=== PATIENT | female | born 1960 | race Caucasian/White ===

== ENCOUNTER 2018-02-04 12:02 | Inpatient (IN) | payer MEDICARE, OTHER ==
[~2018-02-04 12:02] MED LIST: Dexamethasone 20 MG/5 ML VIAL ONE; Lidocaine 1% PF 5 ML VIAL ONE; Ondansetron PF 4 MG/2 ML Vial ONE; PHENYLEPHRINE-NS 100 MCG/ML 10 ML SYRINGE ONE; PROPOFOL 200 MG/20 ML VIAL ONE
[2018-02-04] MEDS ORDERED: Fentanyl 100 MCG/2 ML VIAL ONE ×4 (12:35→17:07)
[2018-02-04] MEDS ORDERED: Ondansetron PF 4 MG/2 ML Vial ONE (12:35)
[2018-02-04 13:09] LABS: Bilirubin Negative (Negative); Blood, Urine Negative (Negative); Clarity CLEAR (Clear); Glucose, Urine (Dipstick) Negative (Negative); Leukocyte Negative (Negative); Nitrite Positive (Negative); Protein, Urine (Dipstick) Negative (Neg-Trace); Specific Gravity, Urine 1.016 (1.002-1.036); Urobilinogen 0.2 mg/dL (0.2-1.0); pH, Urine 6.5 (5.0-9.0)
[2018-02-04 13:10] LABS: #Basophils 0.1 thou/uL (0.0-0.2); #Eosinphils 0.1 thou/uL (0.0-0.7); #Lymphocytes 1.5 thou/uL (1.20-3.40); #Monocytes 0.5 thou/uL (0.11-0.59); #Neutrophils 4.2 thou/uL (1.40-6.50); %Eosinophils 1.1 % (0.0-10.0); %Lymphocytes 23.7 % (21.0-51.0); %Monocytes 7.4 % (0.0-10.0); %Neutrophils 66.9 % (42.0-75.0); Hemoglobin 9.9 g/dL (12.0-16.0); Mean Corpuscular Hemoglobin 22.4 pg (27.0-31.0); Mean Corpuscular Volume 74.6 fL (78.0-98.0); Mean Platelet Volume 7.3 fL (7.4-10.4); Platelet Count 368 thou/uL (130-400); RBC Distribution Width 16.4 % (11.5-14.5); Red Blood Cell (RBC) Count 4.43 mill/uL (4.20-5.40); White Blood Cell (WBC) Count 6.2 thou/uL (4.8-10.8)
[2018-02-04 13:12] LABS: Bacteria/HPF Rare-Few HPF (None Seen); Hyaline Casts/LPF 0-3 HYALINE CAST LPF (0-3 Hyaline); RBC/HPF 0-3 HPF (0-3); Squamous Epithelial None Seen HPF (0-3); WBC/HPF None Seen HPF (0-3)
[2018-02-04 13:15] LABS: Hypochromia SLIGHT = 6-15 cells (100X) (0-5/hpf); MDiff Complete? YES; Microcytosis SLIGHT = 6-15 cells (100X) (0-5/hpf); PLT Morphology Comment Appears Adequate; Polychromasia SLIGHT = 2-3 cells (100X) (0-2/hpf)
[2018-02-04 13:16] LABS: ALT (SGPT) 33 U/L (8-55); AST (SGOT) 32 U/L (5-34); Albumin 3.8 g/dL (3.5-5.0); Alkaline Phosphatase 108 U/L (40-150); Anion Gap 13 mmol/L (10-20); BUN (Urea Nitrogen) 17 mg/dL (9.8-20.1); Bilirubin, Total 0.4 mg/dL (0.2-1.2); CK (CPK) 338 U/L (29-168); Calc. Creatinine Clearance 0 mL/min (70-130); Carbon Dioxide 21 mmol/L (22-29); Chloride 105 mmol/L (98-107); Estimated GFR-MDRD 87; Globulin 3.1 g/dL (2.4-3.5); Glucose 113 mg/dL (70-105); Potassium 3.9 mmol/L (3.5-5.1); Protein, Total 6.9 g/dL (6.0-8.3); Sodium 135 mmol/L (136-145)
--- NOTE | 2018-02-04 13:30 | RAD ---
CHEST ONE VIEW: History: Pre op Comparison: 06-05-13 FINDINGS: Lungs are clear. No pneumothorax or effusions. Cardiac silhouette and mediastinal contours within nor mal limits. IMPRESSION: No acute intrathoracic abnormality. POS: KARYNAH
--- NOTE | 2018-02-04 14:10 | RAD ---
LEFT HIP TWO VIEWS: History: Pain. Comparison: 2008 FINDINGS: Intertrochanteric fracture left femur, mild impacted. IMPRESSION: Mildly impacted intertrochanteric fracture left femur. POS: KARYNA
--- NOTE | 2018-02-04 14:20 | RAD ---
PELVIS ONE VIEW: History: Left hip pain. Comparison: Radiograph 2011 FINDINGS: There is an intertrochanteric fracture left femur with moderate varis angulation and foreshortening. Patient is rotated to the left giving an abnormal appearance of the right acetabular cuff. There is a lucency surrounding the right femur stem. IMPRESSION: 1. Intertrochanteric fracture left femur with mild varis angulation. 2. Extensive lucency surrounding the right femoral stem suggesting osteolysis and loosening. POS: GUSTAVO
--- NOTE | 2018-02-04 14:57 | HP ---
DATE OF ADMISSION: 02/04/2018 REQUESTING PHYSICIAN: Dr. Carson. ATTENDING PHYSICIAN: Dr. Domingo. CONSULTATIONS: Orthopedics, Dr. Keys. HISTORY OF PRESENT ILLNESS: The patient is a 57-year-old woman who was ambulating at home when she slipped and fell landing on her left hip. She had significant pain, but refused to come to the hospital last night. Overnight, she self-medicated without success. This morning, she was broug ht to the Emergency Department by ground EMS, underwent evaluation and examination and was noted to h ave a left intertrochanteric hip fracture, at which time we were asked to evaluate the patient for ad mission and obtain orthopedic consultation. The patient denied loss of consciousness or any syncopal type symptoms prior to her fall. ALLERGIES: PENICILLIN, SULFA, COPPER. CURRENT MEDICATIONS: Lisinopril/hydrochlorothiazide, albuterol, Flexeril, daily vitamin, and ibuprof en. PAST MEDICAL HISTORY: COPD, spinal stenosis, DJD, pancytopenia and depression. PAST SURGICAL HISTORY: Right hip replacement, hysterectomy, appendectomy, tonsillectomy and adenoide ctomy. SOCIAL HISTORY: Patient smokes approximately half pack of cigarettes per day. Denies drug or alcoho l use. Lives at home with family. REVIEW OF SYSTEMS: Ten point review of systems is negative as otherwise stated. PHYSICAL EXAMINATION: VITAL SIGNS: Blood pressure 158/78, heart rate 81, respirations 16, oxygen saturation is 97% on room air and temperature is 98.7. GENERAL: The patient is resting comfortably in the ER bed. She is awake, alert, and oriented x3. G lasgow coma scale is 15. HEENT: Head is normocephalic, atraumatic. Eyes: Extraocular motion intact. PERRLA bilaterally. E ars are atraumatic without discharge. Nose is atraumatic without discharge. Oropharynx is clear. NECK: Nontender. Trachea is midline. No JVD. CHEST: Clear to auscultation with good inspiratory and expiratory effort. HEART: Regular rate and rhythm. ABDOMEN: Soft, flat and nontender with active bowel sounds. Pelvis is stable with tender to palpati on to the left hip consistent with her fracture. EXTREMITIES: Neurovascularly intact x4. BACK: By report is atraumatic and nontender. LABORATORY DATA: White blood cell count 6.2, hemoglobin 9.9, hematocrit 33.0 and platelets 368. Sod ium 135, potassium 3.9, chloride 105, CO2 21, BUN 17, creatinine 0.69, glucose 113. LFTs are unremar kable. CK 338. Urinalysis positive for nitrite, negative for WBCs, RBCs or bacteria. RADIOGRAPHIC FINDINGS: AP chest x-ray shows no acute intrathoracic abnormality. AP pelvis shows an intertrochanteric fracture of the left femur with mild varus angulation. It also shows extensive shashank ency surrounding the right femoral stem suggesting osteolysis and loosening. Views of left hip show a mildly impacted intertrochanteric fracture of the left femur. ASSESSMENT AND PLAN: 1. Status post ground level fall with a remote presentation. 2. Possible rhabdomyolysis. 3. Left intertrochanteric femur fracture. 4. History of hypertension. 5. History of chronic obstructive pulmonary disease. Plan will be to admit the patient to the surgical floor after discussion with Dr. Keys who would li ke to take the patient to the operating room. Today, the patient has been n.p.o. since 02:00. Posto peratively, the patient will have physical and occupational therapy evaluations, pain control, pulmon aure toilet, gastritis, and mechanical VTE prophylaxis. The evaluation, examination, laboratory and r adiographic findings will be discussed with Dr. Domingo after this dictation.
[2018-02-04] MEDS ORDERED: Cepastat Lozenges 1 LOZ PO PRN (15:04)
[2018-02-04] MEDS ORDERED: Ondansetron ODT 4 MG TAB PO PRN ×2 (15:04→17:34)
[2018-02-04] MEDS ORDERED: Milk Of Magnesia 30 ML UDCUP PO PRN (15:04)
[2018-02-04] MEDS ORDERED: Ondansetron PF 4 MG/2 ML Vial IVP PRN ×2 (15:04→17:34)
[2018-02-04] MEDS ORDERED: Bisacodyl 10 MG SUPP PR PRN (15:04)
[2018-02-04] MEDS ORDERED: traMADol HCl 50 MG TAB PO PRN ×3 (15:04→17:34)
[2018-02-04] MEDS ORDERED: Fleet Enema 133 ML BOT PR PRN (15:04)
[2018-02-04] MEDS ORDERED: Clindamycin/D5W 900 mg/50 ml Premix Bag ONE (15:06)
[2018-02-04] MEDS ORDERED: Benzonatate 100 MG CAP PO PRN ×2 (15:07)
[2018-02-04] MEDS ORDERED: PROVENTIL INHALER 6.7 G (200 INHALATIONS) INH PRN (15:07)
[2018-02-04] MEDS ORDERED: Lidocaine 2% Jelly 5 ML TUBE ONE (15:33)
[2018-02-04] MEDS ORDERED: PHENYLEPHRINE-NS 100 MCG/ML 10 ML SYRINGE ONE (16:06)
[2018-02-04] MEDS ORDERED: Promethazine HCl 25 MG/ML VIAL IM PRN (16:49)
[2018-02-04] MEDS ORDERED: Ondansetron HCl/PF 4 MG/2 ML Vial IVP PRN (16:49)
[2018-02-04] MEDS ORDERED: Promethazine HCl 25 MG/ML VIAL SLOW IVP PRN (16:49)
--- NOTE | 2018-02-04 17:09 | OP ---
DATE OF PROCEDURE: 02/04/2018 PREOPERATIVE DIAGNOSIS: Left intertrochanteric hip fracture. POSTOPERATIVE DIAGNOSIS: Left intertrochanteric hip fracture. SURGEON: Jimmie Keys M.D. ANESTHESIA: General. BLOOD LOSS: 200 mL SPECIMEN: None. DRAINS: None. COMPLICATIONS: None. IMPLANTS USED: Synthes trochanteric femoral nail anatomic short with a 100 mm lag screw and a 32 mm locking screw. PROCEDURE IN DETAIL: After informed consent was obtained in the preoperative holding area, the patie nt was taken to the operative suite and positioned appropriately on the fracture table. Spinal anest hetic was placed and the left hip was then prepped and draped in the usual sterile fashion. Prior to incision, a time-out was called and all members of surgical team agreed upon site, surgeon, and umm ent. Patient also received preoperative antibiotics prior to incision. Once this was confirmed, flu oroscopy was brought into the field and we evaluated the reduction and the fracture table was used wi th inline longitudinal traction and adduction to appropriately reduce the fracture. Once we were hap py with near anatomic reduction, we then made a linear incision 2 fingerbreadths above the greater tr ochanter noted by palpation. The subcutaneous layers were opened sharply. I encountered the IT band . This was incised sharply and blunt dissection using a finger was then carried down to the trochante r which was noted by palpation. We used a guidepin to enter the posterior 2/3 of the greater trochant er. Guidepin was then used to enter the canal, over reamed with a 15 mm entry reamer. Once this was established, the prosthesis was then slid down into place and malleted gently to the adequate height and noted with fluoroscopy. The lateral entry outrigger was then placed and we used a 2-incision te chnique to establish the hip screw fixation point. A guidepin was then placed into the femoral head using the outrigger. The measurement was taken. The appropriate size was chosen. Lateral entry broa chris reamer was then used using the outrigger and the final screw was then placed. The anti-rotatio nal gate was then closed and the distal interlocking screw was placed for final construct which appea red near anatomic on radiographs. Both incisions (2-incision technique) were copiously irrigated with normal saline. Primary closure was accomplished with #1 Vicryl at the IT band. Subcutaneous layer was closed with 2-0 Vicryl, and stainless steel dolores were used to reapproximate the skin. Final x -rays demonstrated near anatomic reduction, good hardware fixation. The procedure was terminated wit hout any complications. The patient was taken recovery room in stable condition.
[2018-02-04] MEDS ORDERED: Dextrose 5% in Water 1,000 ML IV PRN (17:34)
[2018-02-04] MEDS ORDERED: Cyclobenzaprine 10 MG TAB PO PRN (17:34)
[2018-02-04] MEDS ORDERED: hydrALAZINE 20 MG/ML VIAL SLOW IVP PRN (17:34)
[2018-02-04] MEDS ORDERED: Dextrose 50% Abboject 50 ML SYRINGE SLOW IVP PRN (17:34)
[2018-02-04] MEDS ORDERED: Acetaminophen 325 MG TAB PO PRN (17:34)
[2018-02-04] MEDS: D5 1/2 NS w/20 mEq KCL 1,000 ML IV SCH (17:48)
[2018-02-04] MEDS: Nicotine 14 MG PATCH TD SCH (17:53)
[2018-02-04] MEDS: Sodium Chloride 0.9% 1,000 ML IV SCH (18:01)
--- NOTE | 2018-02-04 18:20 | RAD ---
LEFT HIP INTRAOPERATIVE FLUOROSCOPY: 02/04/18 HISTORY: ORIF. COMPARISON: 02/04/18. EXPOSURE: 53.5 seconds. 5.86 mGy. FINDINGS: Intraoperative fluoroscopy demonstrates interval placement of internal fixation hardware. Fracture wicho cency is identified. Alignment is near anatomic. IMPRESSION: Fluoroscopy as above. POS: [facility]
--- NOTE | 2018-02-04 18:35 | CON ---
DATE OF CONSULTATION: 02/04/2018 HISTORY OF PRESENT ILLNESS: She is a very pleasant 57-year-old woman who fell in her own home today, suffered a fracture of her left hip. PAST MEDICAL HISTORY: Positive for right hip fracture and she has some chronic lung disease. SOCIAL HISTORY: She is a smoker. She is and lives with her . PHYSICAL EXAMINATION: GENERAL: Shows a pleasant woman who is in no distress . EXTREMITIES: Left hip shows shortening external rotation, intact DP pulse, intact sensation of the t oes. Good capillary refill in the toes. IMAGING: Radiograph show comminuted intertrochanteric hip fracture. PLAN: Intramedullary fixation. She understands the risk of infection, blood clots, transfusio n, , and would like to proceed with surgery.
[2018-02-04 18:51] VITALS: BMI 24.0
[2018-02-04] MEDS: HYDROcodone/Acetaminophen 5/325 mg Tablet PO PRN (19:05)
[2018-02-04] MEDS: Mometasone/Formoterol 120 PUFF INHALER INH SCH (19:26)
[2018-02-04] MEDS: Ipratropium Bromide 2.5 ml Neb NEB SCH (19:32)
[2018-02-04] MEDS: Clindamycin/D5W 900 MG in Premix Bag 1 BAG IVPB SCH (20:01)
[2018-02-04] MEDS: Morphine 2 MG/ML SYRINGE IVP PRN (20:02)
[2018-02-04] MEDS: Aspirin 325 MG TAB PO SCH (20:02)
[2018-02-04] MEDS: Famotidine 20 MG TAB PO SCH (20:02)
[2018-02-04] MEDS: Senokot S 8.6-50 MG TAB PO SCH (20:09)
[2018-02-05] MEDS: Ipratropium Bromide 2.5 ml Neb NEB SCH ×4 (00:20→19:34)
[2018-02-05] MEDS: HYDROcodone/Acetaminophen 5/325 mg Tablet PO PRN ×2 (00:44→06:37)
[2018-02-05] MEDS: Ibuprofen 800 MG TAB PO SCH ×4 (00:44→20:06)
[2018-02-05] MEDS: Clindamycin/D5W 900 MG in Premix Bag 1 BAG IVPB SCH (03:51)
[2018-02-05] MEDS: Sodium Chloride 0.9% 1,000 ML IV SCH (03:51)
[2018-02-05] MEDS: traMADol HCl 50 MG TAB PO PRN (03:54)
[2018-02-05 06:09] LABS: #Lymphocytes 0.8 thou/uL (1.20-3.40); #Monocytes 0.3 thou/uL (0.11-0.59); #Neutrophils 5.8 thou/uL (1.40-6.50); %Basophils 0.4 % (0.0-1.0); %Monocytes 4.4 % (0.0-10.0); %Neutrophils 84.2 % (42.0-75.0); Mean Corpuscular Hemoglobin 22.7 pg (27.0-31.0); Mean Corpuscular Volume 75.5 fL (78.0-98.0); Mean Platelet Volume 7.4 fL (7.4-10.4); Platelet Count 343 thou/uL (130-400); RBC Distribution Width 16.3 % (11.5-14.5); Red Blood Cell (RBC) Count 3.51 mill/uL (4.20-5.40); White Blood Cell (WBC) Count 6.9 thou/uL (4.8-10.8)
[2018-02-05 06:16] LABS: ALT (SGPT) 23 U/L (8-55); AST (SGOT) 19 U/L (5-34); Albumin 3.1 g/dL (3.5-5.0); Alkaline Phosphatase 84 U/L (40-150); Anion Gap 11 mmol/L (10-20); BUN (Urea Nitrogen) 14 mg/dL (9.8-20.1); Bilirubin, Total 0.3 mg/dL (0.2-1.2); Calc. Creatinine Clearance 79 mL/min (70-130); Calcium 8.3 mg/dL (7.8-10.44); Carbon Dioxide 21 mmol/L (22-29); Chloride 106 mmol/L (98-107); Estimated GFR-MDRD 77; Globulin 2.5 g/dL (2.4-3.5); Glucose 149 mg/dL (70-105); Protein, Total 5.6 g/dL (6.0-8.3); Sodium 134 mmol/L (136-145)
[2018-02-05] MEDS: Mometasone/Formoterol 120 PUFF INHALER INH SCH ×2 (06:44→19:33)
[2018-02-05] MEDS: D5 1/2 NS w/20 mEq KCL 1,000 ML IV SCH ×2 (06:45→22:28)
[2018-02-05] MEDS: Aspirin 325 MG TAB PO SCH ×2 (08:33→20:06)
[2018-02-05] MEDS: Lisinopril/Hydrochlorothiazide 20/25 mg Tablet PO SCH (08:34)
[2018-02-05] MEDS: Multivitamin W/ Minerals 1 TAB PO SCH (08:35)
[2018-02-05] MEDS: Senokot S 8.6-50 MG TAB PO SCH ×2 (08:35→20:06)
[2018-02-05] MEDS: Famotidine 20 MG TAB PO SCH ×2 (08:35→20:07)
[2018-02-05] MEDS ORDERED: Ferrous Gluconate 324 MG TAB PO SCH (09:00)
[2018-02-05] MEDS ORDERED: Nicotine 14 MG PATCH TD SCH (09:00)
[2018-02-05] MEDS: Morphine 2 MG/ML SYRINGE IVP PRN ×3 (09:16→16:41)
--- NOTE | 2018-02-05 13:22 | PRG ---
DATE OF SERVICE: 02/05/2018 SUBJECTIVE: The patient is hospital day #2, postop day #1, status post ground level fall in which onel mason sustained a left intertrochanteric hip fracture. Yesterday, she underwent ORIF of the fracture whi ch she tolerated well this morning. She is tolerating a diet. Her pain was controlled and she just had her very first session with physical therapy with her sitting to the side of the bed. PHYSICAL EXAMINATION: VITAL SIGNS: Temperature is 97.6, heart rate 76, blood pressure 108/62, respirations 18, oxygen satu ration 93% on room air. GENERAL: The patient is resting comfortably in bed. She is awake, alert, oriented x3. Raymond coma scale is 15. HEENT: Unremarkable. LUNGS: Clear to auscultation with good inspiratory and expiratory effort. HEART: Regular rate and rhythm. ABDOMEN: Soft, flat, nontender with active bowel sounds. Pelvis is stable. Postop dressing is leesa n, dry, and intact. EXTREMITIES: Neurovascularly intact x4. LABORATORY DATA: White blood cell count 6.9, hemoglobin 8.0, hematocrit 26.5, platelets 343. Sodium 134, potassium 4.0, chloride 106, CO2 of 21, BUN 14, creatinine 0.77, glucose 149. There are no rad iographs to review this morning. ASSESSMENT AND PLAN: 1. Status post ground level fall. 2. Status post open reduction internal fixation of left hip fracture. 3. History of chronic obstructive pulmonary disease and hypertension. Plan will be to continue supportive care, physical and occupational therapy, rehab consultation. Her IV will be saline locked. We will discontinue her Bustillo catheter today. The evaluation and examina tion were done with Dr. Gonzales this morning during rounds.
[2018-02-05] MEDS: HYDROcodone/Acetaminophen 10/325 mg Tablet PO SCH ×2 (14:11→21:29)
[2018-02-05] MEDS: Ferrous Sulfate 325 MG TAB PO SCH (16:34)
[2018-02-05] MEDS: Nicotine 14 MG PATCH TD SCH (16:35)
[2018-02-05] MEDS: Ascorbic Acid 500 mg Chewable Tablet PO SCH (20:07)
[2018-02-05] MEDS: Cyclobenzaprine 10 MG TAB PO SCH (21:46)
[2018-02-06] MEDS: Ipratropium Bromide 2.5 ml Neb NEB SCH ×3 (00:46→13:02)
[2018-02-06] MEDS: traMADol HCl 50 MG TAB PO PRN ×2 (03:49→11:09)
[2018-02-06 05:58] LABS: Hemoglobin 7.8 g/dL (12.0-16.0); Mean Corpuscular Hemoglobin 23.4 pg (27.0-31.0); Mean Corpuscular Volume 75.6 fL (78.0-98.0); Mean Platelet Volume 7.3 fL (7.4-10.4); Platelet Count 356 thou/uL (130-400); RBC Distribution Width 16.5 % (11.5-14.5); Red Blood Cell (RBC) Count 3.32 mill/uL (4.20-5.40); White Blood Cell (WBC) Count 6.2 thou/uL (4.8-10.8)
[2018-02-06] MEDS: Morphine 2 MG/ML SYRINGE IVP PRN (06:22)
[2018-02-06] MEDS: Mometasone/Formoterol 120 PUFF INHALER INH SCH (06:50)
[2018-02-06] MEDS ORDERED: predniSONE 20 MG TAB PO SCH (08:00)
[2018-02-06] MEDS: HYDROcodone/Acetaminophen 10/325 mg Tablet PO SCH ×2 (08:18→14:14)
[2018-02-06] MEDS: Aspirin 325 MG TAB PO SCH (08:18)
[2018-02-06] MEDS: Senokot S 8.6-50 MG TAB PO SCH (08:19)
[2018-02-06] MEDS: Ibuprofen 800 MG TAB PO SCH ×2 (08:19→14:14)
[2018-02-06] MEDS: Ferrous Sulfate 325 MG TAB PO SCH (08:19)
[2018-02-06] MEDS: Famotidine 20 MG TAB PO SCH (08:19)
[2018-02-06] MEDS: Ascorbic Acid 500 mg Chewable Tablet PO SCH (08:20)
[2018-02-06] MEDS: Multivitamin W/ Minerals 1 TAB PO SCH (08:20)
[2018-02-06] MEDS: Lisinopril/Hydrochlorothiazide 20/25 mg Tablet PO SCH (08:20)
[2018-02-06] MEDS: Cyclobenzaprine 10 MG TAB PO SCH (08:20)
[2018-02-06] MEDS ORDERED: Polyethylene Glycol 3350 17 GM Packet PO SCH (09:00)
[2018-02-06 11:46] VITALS: BP 122/65; TEMP 98.6
--- NOTE | 2018-02-06 14:30 | DIS ---
DATE OF ADMISSION: 02/04/2018 DATE OF DISCHARGE: 02/06/2018 DISCHARGE DIAGNOSES: 1. Status post ground level fall with remote presentation with delayed presentation. 2. Possible rhabdomyolysis. 3. Left intertrochanteric femur fracture. 4. History of hypertension. 5. History of chronic obstructive pulmonary disease. CONSULTATIONS: Dr. Keys, Orthopedics. PROCEDURES: ORIF of left intertrochanteric hip fracture. SUMMARY: The patient is a -dbyz-mow woman who reportedly fell at home the night prior to presen ting to the Emergency Department. She was unable to control her pain at home and had extreme difficu lty ambulating, was brought to the Emergency Department, underwent evaluation and examination and fou nd to have the above injuries. She would undergo her procedure the same day which she tolerated well . The next day, she would begin work with physical and occupational therapy. At the time of dischar ge, her pain was controlled. She was tolerating a diet and she did continue to progress with physica l and occupational therapy. She will follow up with Dr. Keys in 2 weeks or sooner as needed. She may follow up with the Trauma [facility] as needed.
[2018-02-06] MEDS: Nicotine 14 MG PATCH TD SCH (15:25)
[2018-02-06] MEDS ORDERED: Nitrofurantoin Monohyd/M-Cryst 100 MG CAP PO SCH (21:00)
== END 2018-02-06 15:40 | DRG 481 ==
LOC: ERS 12:02 → SURG A 15:00 → SDC 15:06 → SURG A 17:24
PROVIDERS: ADMIT Surgery; ATTEND Surgery
PROC: 0QS704Z Reposition Left Upper Femur with Internal Fixation Device, Open Approach (ICD-10-PCS; principal; 2018-02-04)
DX: S72.142A Displaced intertrochanteric fracture of left femur, initial encounter for closed fracture (principal); D61.818 Other pancytopenia; M62.82 Rhabdomyolysis; W01.0XXA Fall on same level from slipping, tripping and stumbling without subsequent striking against object, initial encounter; Y92.019 Unspecified place in single-family (private) house as the place of occurrence of the external cause; Z88.0 Allergy status to penicillin; Z88.2 Allergy status to sulfonamides; Z91.048 Other nonmedicinal substance allergy status; J44.9 Chronic obstructive pulmonary disease, unspecified; M19.90 Unspecified osteoarthritis, unspecified site; F32.9 Major depressive disorder, single episode, unspecified; Z96.641 Presence of right artificial hip joint; F17.210 Nicotine dependence, cigarettes, uncomplicated; I10 Essential (primary) hypertension
CPT/HCPCS: 36415; 51702; 71045; 72170; 76001; 80053; 81003; 81015; 82550; 85025; 85027; 87077; 87086; 87186; 93005; 94640; 94664; 94760; 96361; 96374; 96375; 96376; C1713; G0390; G8978-GP-CL; G8979-GP-CJ; G8987-GO-CL; G8988-GO-CK; J1100; J2001; J2270; J2405; J2704; J3010; J3490; J7506

== ENCOUNTER 2018-04-05 09:50 | Outpatient (CLI) | payer OTHER ==
--- NOTE | 2018-04-05 10:56 | RAD ---
LUMBAR SPINE 2 VIEWS: Date: 04/05/18 HISTORY: Low back pain, TRC. FINDINGS/IMPRESSION: Comparison made with exam of 02/04/12. Multilevel degenerative changes are present. No fracture or bony destruction is seen. There is minima l anterolisthesis of L4 over L5. POS: KARYNA
== END 2018-04-05 09:51 | disposition home or self-care (01) ==
LOC: BICRAD 09:50
PROVIDERS: ATTEND Internal Medicine
DX: Z02.71 Encounter for disability determination (principal); M47.816 Spondylosis without myelopathy or radiculopathy, lumbar region; M43.16 Spondylolisthesis, lumbar region
CPT/HCPCS: 72100

== ENCOUNTER 2018-09-07 07:11 | Inpatient (IN) | payer MEDICARE, OTHER ==
[2018-09-07 07:49] LABS: #Basophils 0.1 thou/uL (0.0-0.2); #Eosinphils 0.1 thou/uL (0.0-0.7); #Lymphocytes 1.5 thou/uL (1.20-3.40); #Monocytes 0.4 thou/uL (0.11-0.59); %Basophils 0.7 % (0.0-1.0); %Eosinophils 0.7 % (0.0-10.0); %Lymphocytes 13.8 % (21.0-51.0); %Monocytes 3.9 % (0.0-10.0); %Neutrophils 80.9 % (42.0-75.0); Hemoglobin 12.4 g/dL (12.0-16.0); Mean Corpuscular HGB CONC 31.5 g/dL (32.0-36.0); Mean Corpuscular Hemoglobin 25.9 pg (27.0-31.0); Mean Corpuscular Volume 82.2 fL (78.0-98.0); Mean Platelet Volume 6.7 fL (7.4-10.4); Platelet Count 369 thou/uL (130-400); RBC Distribution Width 14.3 % (11.5-14.5); Red Blood Cell (RBC) Count 4.81 mill/uL (4.20-5.40); White Blood Cell (WBC) Count 11.1 thou/uL (4.8-10.8)
--- NOTE | 2018-09-07 07:52 | RAD ---
EXAM: Single view of the chest HISTORY: Abdominal pain since last night; chest pain COMPARISON: 02/04/2018 FINDINGS: Single view of the chest shows a normal sized cardiomediastinal silhouette. There is no delma dence of consolidation, mass, or pleural effusion. Degenerative changes are seen in the spine. There is a remote unhealed left posterior lateral rib fracture. IMPRESSION: No evidence of acute cardiopulmonary disease
[2018-09-07] MEDS ORDERED: Morphine 4 MG/ML VIAL ONE ×3 (08:05→11:27)
[2018-09-07] MEDS ORDERED: Ondansetron PF 4 MG/2 ML Vial ONE ×2 (08:05→12:10)
[2018-09-07] MEDS ORDERED: Pantoprazole 40 MG VIAL ONE (08:05)
[2018-09-07 08:14] LABS: ALT (SGPT) 13 U/L (8-55); AST (SGOT) 14 U/L (5-34); Albumin 4.2 g/dL (3.5-5.0); Alkaline Phosphatase 127 U/L (40-150); Anion Gap 12 mmol/L (10-20); BUN (Urea Nitrogen) 14 mg/dL (9.8-20.1); Bilirubin, Total 0.2 mg/dL (0.2-1.2); CK (CPK) 98 U/L (29-168); Calc. Creatinine Clearance 0 mL/min (70-130); Calcium 9.4 mg/dL (7.8-10.44); Carbon Dioxide 25 mmol/L (22-29); Chloride 103 mmol/L (98-107); Estimated GFR-MDRD 83; Glucose 125 mg/dL (70-105); Lipase 20 U/L (8-78); Potassium 3.5 mmol/L (3.5-5.1); Protein, Total 7.2 g/dL (6.0-8.3); Sodium 136 mmol/L (136-145)
--- NOTE | 2018-09-07 08:43 | CT ---
CT ABDOMEN AND PELVIS WITH CONTRAST: Date: 09/07/18 HISTORY: Abdominal pain. COMPARISON: CT pelvis dated 02/09/18. FINDINGS: Lung bases are clear. No pericardial effusion. There is mild wall thickening of the gallbladder. There is also dilatation of the common bile duct. M ild intrahepatic biliary dilatation. Gallbladder is moderately distended. Mild diverticular disease sigmoid colon without active current inflammation. No dilated loops of larg e or small bowel. Moderate degenerative changes of the lumbar spine. Left femoral nail is in place. Right hip arthropla sty. IMPRESSION: 1. Intrahepatic and extrahepatic biliary dilatation. Recommend correlation with LFTs. ERCP/MRCP may be beneficial. 2. Moderately distended gallbladder with wall thickening, may be reservoir effect from distal obstru ctive process at the common bile duct. Superimposed acute cholecystitis is also a possibility. 3. Mild prominence of the pancreatic duct may be sequelae of distal obstructive process. POS: [facility]
[2018-09-07 09:05] LABS: Bilirubin Negative (Negative); Blood, Urine Negative (Negative); Clarity CLEAR (Clear); Glucose, Urine (Dipstick) Negative (Negative); Leukocyte Negative (Negative); Nitrite Negative (Negative); Protein, Urine (Dipstick) Negative (Neg-Trace); Specific Gravity, Urine 1.025 (1.002-1.036); Urobilinogen 0.2 mg/dL (0.2-1.0); pH, Urine 7.5 (5.0-9.0)
[2018-09-07] MEDS ORDERED: ISOVUE-370 76%-LOCM 1 ML ONE (09:27)
--- NOTE | 2018-09-07 09:51 | ULT ---
Exam: Right upper quadrant ultrasound: HISTORY: Right upper quadrant abdominal pain. Recent CT exam demonstrated biliary duct dilatation. COMPARISON: CT abdomen on 09/07/2018. FINDINGS: Liver: There is evidence of mild intrahepatic biliary duct dilatation. The liver otherwise demonstrat es a normal sonographic appearance. Gallbladder: Multiple mobile echogenic foci with posterior shadowing are seen in the gallbladder lume n consistent with cholelithiasis. Gallbladder wall is thickened measuring 0.4 cm in thickness with tiny amount of adjacent pericholecystic fluid is identified. Common bile duct: The limited visualized common duct is normal in caliber measuring 0.3 cm. However a s stated above, there is mild intrahepatic biliary ductal dilatation. This finding was also noted on the recent CT scan exam on the CT examination was at the upper limits of normal in size measuring 0.6 cm. Pancreas: Pancreatic duct is at the upper limits of normal in size. Majority of pancreas is obscured, the limited visualized portion of the head and neck of the pancreas is otherwise normal sonographic appearance. Right kidney: Right kidney demonstrates a normal sonographic appearance. The right kidney measures 8 cm in length. IVC: The visualized IVC demonstrates a normal sonographic appearance. IMPRESSION: 1. Cholelithiasis with gallbladder wall thickening and minimal pericholecystic fluid suggesting spike cystitis. 2. Mild intrahepatic biliary duct dilatation as well as prominence of the pancreatic duct. However, t he visualized extrahepatic common duct is normal in caliber. ERCP/MRCP may be helpful for further evaluation.
[2018-09-07] MEDS ORDERED: Ondansetron ODT 4 MG TAB SL PRN (10:00)
[2018-09-07] MEDS ORDERED: Ondansetron PF 4 MG/2 ML Vial IVP PRN (10:00)
[2018-09-07 10:54] LABS: Prothrombin Time 13.5 SEC (12.0-14.7)
[2018-09-07 10:55] LABS: PTT 37.8 SEC (22.9-36.1)
[2018-09-07] MEDS ORDERED: metroNIDAZOLE 500 MG/100 ML BAG ONE (10:56)
--- NOTE | 2018-09-07 11:08 | HP ---
HISTORY OF PRESENT ILLNESS: Ms. Llanes is a 58-year-old woman, presented to the emergency department with insidious onset epigastric right upper quadrant abdominal pain, which woke her up approximately 0100 hours. The pain is described as sharp, rated at 10/10, radiating to back. Pain was associated with multiple episodes of nausea, one bout of nonbilious emesis, and chills, but no fevers. The patient denies any other change in her bowel habits. She has been experiencing similar pain pattern over the last 2 to 3 weeks, though non as severe as the one brought her to the emergency department today. Last meal was dinner last night consisting of [employer] cheesesteak. PAST MEDICAL HISTORY: Pertinent for essential hypertension, COPD, and degenerative arthritic disease. PAST SURGICAL HISTORY: Pertinent for total abdominal hysterectomy, which was complicated by wound infection requiring exploratory surgery. Other pertinent surgical history includes childhood appendectomy. SOCIAL HISTORY: She admits to smoking half a pack of cigarettes per day. She, however, used to smoke up to 2 packs of cigarettes per day, did so for over 30 years. Denies any ethanol or illicit drug abuse. FAMILY HISTORY: Noncontributory for this patient's age. PRE-HOSPITAL MEDICATIONS: Include: 1. Albuterol inhalation therapy 2 puffs p.r.n. 2. Flexeril 10 mg p.o. b.i.d. 3. Ibuprofen 400 mg p.o. p.r.n. 4. Hydrocodone 10 mg q.i.d. p.r.n. pain. ALLERGIES: PENICILLIN AND SULFA DRUGS. REVIEW OF SYSTEMS: Ten-point review of systems is essentially unremarkable except as stated in past medical history and chief complaint. PHYSICAL EXAMINATION: GENERAL: This reveals 58-year-old normally developed woman, who is otherwise coherent, interactive, and appears her stated age. The patient is alert and oriented x3, appears to be in moderate acute distress secondary to right upper quadrant abdominal pain. VITAL SIGNS: Include blood pressure 190/81, pulse 85, respiratory rate is 18, temperature is 98.1 degrees Fahrenheit, and oxygen saturation 98% on room air. HEENT: Reveals normocephalic and atraumatic. Pupils are equal, round, and reactive to light and accommodation. Extraocular muscles are intact bilaterally. She has no scleral icterus present. Oral mucosa is pink and moist. No lesions are noted. NECK: Supple. No palpable lymphadenopathy or thyromegaly present. HEART: Reveals regular rate and rhythm. No murmurs or gallops auscultated. LUNGS: Clear to auscultation bilaterally. Breathing, regular and nonlabored. ABDOMEN: Soft with right upper quadrant tenderness to palpation. She has a positive Servin sign. Liver and spleen are otherwise nonpalpable below costal margin. EXTREMITIES: Revealed 2+ radial and pedal pulses bilaterally. No ankle edema is present. NEUROLOGIC: Reveals no focal deficits present. LABORATORY FINDINGS: Today include a CBC with 11,100 white blood cells, hemoglobin and hematocrit are 12.4 and 39.5 respectively. Platelet count is 369,000. Metabolic profile; sodium 136, potassium is 3.5, chloride is 103, bicarb is 25, BUN is 14, creatinine 0.72, glucose 125, total bilirubin is 0.2, and AST and ALT are 14 and 13 respectively. Alkaline phosphatase is also normal at 127. Serum lipase is normal at 20. IMAGING STUDIES: I have personally reviewed abdominal ultrasound, which is remarkable for multiple intraluminal gallstones, gallbladder wall thickening, and pericholecystic fluid present. Common bile duct is normal in diameter for this patient's age at 3.2 mm. IMPRESSION: 1. Acute cholecystitis with cholelithiasis. 2. Essential hypertension. PLAN: Laparoscopic cholecystectomy. I have advised the patient of the above findings and plan. I have also advised of the risks and benefits of the proposed surgery to include, but not limited to bleeding, infection, injury to bile duct or surrounding structures. This information given to the patient in the presence of adult daughter and her nurse at bedside. The patient and her daughter have indicated understanding information given. I have answered their questions. The patient has granted consent for this admission and surgical intervention. Job ID: [id number]
[2018-09-07] MEDS ORDERED: Succinylcholine Chloride 20 MG/ML 10 ml SYRINGE FS ONE (12:10)
[2018-09-07] MEDS ORDERED: Ketorolac Tromethamine 30 MG/ML VIAL ONE (12:10)
[2018-09-07] MEDS ORDERED: Lidocaine 1% PF 5 ML VIAL ONE (12:10)
[2018-09-07] MEDS ORDERED: Glycopyrrolate 0.2 MG/ML 5 ML SYRINGE ONE (12:10)
[2018-09-07] MEDS ORDERED: Dexamethasone 20 MG/5 ML VIAL ONE (12:10)
[2018-09-07] MEDS ORDERED: Rocuronium Bromide 10 MG/ML (10ML VIAL) ONE (12:10)
[2018-09-07] MEDS ORDERED: PROPOFOL 200 MG/20 ML VIAL ONE (12:10)
[2018-09-07] MEDS ORDERED: Morphine 4 MG/ML VIAL SLOW IVP PRN (12:26)
[2018-09-07] MEDS ORDERED: D5 1/2 NS w/20 mEq KCL 1,000 ML IV SCH (12:30)
[2018-09-07] MEDS ORDERED: Fentanyl 100 MCG/2 ML VIAL ONE ×3 (12:39→15:23)
[2018-09-07] MEDS ORDERED: Bupivacaine/Epinephrine 0.25% 30 ML VIAL ONE (12:54)
[2018-09-07] MEDS ORDERED: Iothalamate Meglumine 60% 50 ML VIAL FS ONE (12:54)
[2018-09-07] MEDS ORDERED: metroNIDAZOLE 500 MG in Premix Bag 1 BAG IVPB SCH (15:00)
--- NOTE | 2018-09-07 17:44 | OP ---
DATE OF PROCEDURE: 09/07/2018 PREOPERATIVE DIAGNOSIS: Acute cholecystitis with cholelithiasis. POSTOPERATIVE DIAGNOSIS: Acute cholecystitis with cholelithiasis. OPERATION PERFORMED: Laparoscopic cholecystectomy. ANESTHESIA: General endotracheal. ESTIMATED BLOOD LOSS: 20 mL. FLUIDS GIVEN: 1000 mL of crystalloids. SPONGE AND INSTRUMENT COUNT: Sponge and instrument counts were verified as correct x2. COMPLICATIONS: None apparent at the time of operation. INDICATIONS FOR OPERATION: This is a 58-year-old woman, presented with insidious onset epigastric right upper quadrant abdominal pain. Clinical radiographic examination was consistent with acute cholecystitis with cholelithiasis for which the patient was brought to the operating room for cholecystectomy. Findings are consistent with a markedly distended gallbladder in the usual anatomic location, partially encased by omental adhesions. The gallbladder was also full of white bile consistent with hydrops. DESCRIPTION OF PROCEDURE: Informed consent was obtained from the patient. She was brought to the operating room and placed in supine position. Following general anesthesia, the abdomen was sterilely prepped and draped in usual fashion. The skin below the umbilicus was infiltrated with 0.25% Marcaine with epinephrine. A small-curvilinear infraumbilical incision was made using an 11-scalpel. Umbilical stalk was grasped with Latoya and elevated. Veress needle inserted through the incision, placed in the peritoneal cavity, through which the abdomen was insufflated with 3 L of CO2 gas. Intraabdominal pressure was noted at 2 mmHg. Following abdominal insufflation, Veress needle was removed and a 5 mm trocar introduced using a Visiport under laparoscopy. Laparoscopy confirmed proper placement of the port and no injuries to underlying structures. Additional laparoscopy reveals markedly distended gallbladder in usual anatomic location, partially encased by omental adhesions. Under direct laparoscopy, a 12 mm epigastric and two 5 mm right lateral subcostal ports were placed after the overlying skin was infiltrated with 0.25% Marcaine with epinephrine and appropriate incision was made. The patient was placed in a reverse Trendelenburg position, rotated to her left. I introduced a [place] dissector with cautery. Using this, we took down omental adhesions. I attempted to grasp the fundus of the gallbladder using a Prestige grasper. This was difficult due to marked distention. I decided to decompress the gallbladder. Using the Endo suction cautery catheter, the fundus of the gallbladder was chosen and cholecystostomy performed here using cautery, evacuating excess white bile. Prestige grasper was then applied at the fundus of the gallbladder, which was elevated cephalad. The cystic duct was carefully dissected free from surrounding structures at the triangle of Calot, dividing this duct between clips. Two clips were applied proximally, one clip at the junction of the cystic duct and gallbladder. The cystic artery was dissected free from surrounding structures and divided between clips in a similar fashion. The gallbladder itself was removed from the liver bed using cautery with good hemostasis. The gallbladder was delivered of the abdominal cavity using an EndoCatch. Operative site was inspected. There was minor oozing of venous blood in the gallbladder fossa. Hemostasis was readily achieved using 1 x 2 inch piece of fibrillar. Finding no other pathology, laparoscopy was terminated. Fascia of the epigastric port was closed using 0 Vicryl suture and Endoclosure device on the laparoscopy. The abdomen was desufflated. All ports and instruments were removed and accounted for. Skin incisions were closed using 4-0 Monocryl suture in subcuticular fashion. Dermabond was applied over incisional closure. The patient tolerated the operation without any apparent complication and was returned to recovery room in satisfactory condition. Job ID: [id number]
== END 2018-09-07 17:23 | disposition home or self-care (01) | DRG 419 ==
LOC: ERS 07:11 → ERHOLD 10:41 → SURG A 14:41
PROVIDERS: ADMIT Surgery; ATTEND Surgery
PROC: 0FT44ZZ Resection of Gallbladder, Percutaneous Endoscopic Approach (ICD-10-PCS; principal; 2018-09-07)
DX: K80.00 Calculus of gallbladder with acute cholecystitis without obstruction (principal); I10 Essential (primary) hypertension; J44.9 Chronic obstructive pulmonary disease, unspecified; M19.90 Unspecified osteoarthritis, unspecified site; F17.210 Nicotine dependence, cigarettes, uncomplicated; Z90.710 Acquired absence of both cervix and uterus; Z90.49 Acquired absence of other specified parts of digestive tract; Z88.0 Allergy status to penicillin; Z88.2 Allergy status to sulfonamides; Z79.51 Long term (current) use of inhaled steroids; Z79.899 Other long term (current) drug therapy
CPT/HCPCS: 36415; 71045; 74177; 76705; 80053; 81003; 82550; 83690; 83880; 84484; 85025; 85610; 85730; 88304; 93005; C9113; J1100; J1885; J1956; J2001; J2270; J2405; J2704; J3010; Q9966

== ENCOUNTER 2018-12-16 10:56 | Emergency (ER) | payer MEDICARE ==
--- NOTE | 2018-12-16 11:49 | RAD ---
Exam: XR Knee Rt 4 View STANDARD HISTORY: Right knee joint pain. Right knee pain since going up and down a ladder. COMPARISON: None FINDINGS: There is mild tricompartment osteophytosis. There is mild joint space narrowing involving the medial joint compartment. Osteopenia is present. No acute fracture, dislocation, or other acute osseous abnormality is identified. IMPRESSION: Osteopenia and osteoarthritis, but no acute osseous abnormality is seen involving the right knee.
== END 2018-12-16 12:23 | disposition home or self-care (01) ==
LOC: ERS 10:56
DX: S83.91XA Sprain of unspecified site of right knee, initial encounter (principal); I10 Essential (primary) hypertension; J44.9 Chronic obstructive pulmonary disease, unspecified; F32.9 Major depressive disorder, single episode, unspecified; F17.210 Nicotine dependence, cigarettes, uncomplicated; Z79.51 Long term (current) use of inhaled steroids; Z79.899 Other long term (current) drug therapy; X50.9XXA Other and unspecified overexertion or strenuous movements or postures, initial encounter

== ENCOUNTER 2021-03-24 13:59 | Inpatient (IN) | payer MEDICARE, MEDICAID ==
[2021-03-24 14:48] LABS: #Basophils 0.1 thou/uL (0.0-0.2); #Eosinphils 0.3 thou/uL (0.0-0.7); #Lymphocytes 2.8 thou/uL (1.20-3.40); #Monocytes 0.7 thou/uL (0.11-0.59); #Neutrophils 12.8 thou/uL (1.40-6.50); %Basophils 0.3 % (0.0-1.0); %Lymphocytes 16.9 % (21.0-51.0); %Monocytes 4.2 % (0.0-10.0); %Neutrophils 76.5 % (42.0-75.0); Hemoglobin 13.9 g/dL (12.0-16.0); Mean Corpuscular HGB CONC 33.7 g/dL (32.0-36.0); Mean Corpuscular Hemoglobin 30.1 pg (27.0-31.0); Mean Corpuscular Volume 89.5 fL (78.0-98.0); Mean Platelet Volume 6.2 fL (7.4-10.4); Platelet Count 521 thou/uL (130-400); RBC Distribution Width 12.3 % (11.5-14.5); Red Blood Cell (RBC) Count 4.62 mill/uL (4.20-5.40); White Blood Cell (WBC) Count 16.7 thou/uL (4.8-10.8)
[2021-03-24] MEDS ORDERED: Ketorolac Tromethamine 30 MG/ML VIAL ONE (14:57)
[2021-03-24] MEDS ORDERED: Morphine 4 MG/ML VIAL ONE (14:57)
[2021-03-24] MEDS ORDERED: cefTRIAXone\\ROCEPHIN 1 GM VIAL ONE (14:57)
[2021-03-24] MEDS ORDERED: Azithromycin 500 MG VIAL ONE (14:57)
[2021-03-24] MEDS ORDERED: Albuterol 200 PUFF (6.7GM INHALER) ONE (14:57)
[2021-03-24 15:10] LABS: ALT (SGPT) 20 U/L (8-55); AST (SGOT) 15 U/L (5-34); Albumin 4.1 g/dL (3.4-4.8); Alkaline Phosphatase 130 U/L (40-110); Anion Gap 16 mmol/L (10-20); BUN (Urea Nitrogen) 21 mg/dL (9.8-20.1); Bilirubin, Total 0.3 mg/dL (0.2-1.2); Calc. Creatinine Clearance 0 mL/min (70-130); Calcium 9.5 mg/dL (7.8-10.44); Carbon Dioxide 21 mmol/L (23-31); Chloride 105 mmol/L (98-107); Globulin 3.3 g/dL (2.4-3.5); Glucose 126 mg/dL (80-115); Lipase 29 U/L (8-78); Potassium 3.9 mmol/L (3.5-5.1); Protein, Total 7.4 g/dL (5.8-8.1); Sodium 138 mmol/L (136-145)
[2021-03-24] MEDS ORDERED: Nicotine 14 MG PATCH TD SCH (18:15)
[2021-03-24] MEDS ORDERED: Enoxaparin Sodium 40 MG/0.4 ML SYRINGE SC SCH (18:15)
[2021-03-24 18:50] LABS: SARS-CoV-2 NAA Rapid Test Not Detected (NotDetected)
[2021-03-24 18:51] LABS: #Basophils 0.1 thou/uL (0.0-0.2); #Eosinphils 0.3 thou/uL (0.0-0.7); #Lymphocytes 2.2 thou/uL (1.20-3.40); #Monocytes 0.8 thou/uL (0.11-0.59); #Neutrophils 14.9 thou/uL (1.40-6.50); %Basophils 0.3 % (0.0-1.0); %Eosinophils 1.4 % (0.0-10.0); %Lymphocytes 12.2 % (21.0-51.0); %Monocytes 4.3 % (0.0-10.0); %Neutrophils 81.8 % (42.0-75.0); Hemoglobin 13.6 g/dL (12.0-16.0); Mean Corpuscular HGB CONC 32.8 g/dL (32.0-36.0); Mean Corpuscular Hemoglobin 29.5 pg (27.0-31.0); Mean Platelet Volume 6.2 fL (7.4-10.4); Platelet Count 470 thou/uL (130-400); RBC Distribution Width 12.3 % (11.5-14.5); White Blood Cell (WBC) Count 18.2 thou/uL (4.8-10.8)
[2021-03-24 19:17] LABS: ALT (SGPT) 19 U/L (8-55); AST (SGOT) 15 U/L (5-34); Albumin 3.7 g/dL (3.4-4.8); Alkaline Phosphatase 117 U/L (40-110); Anion Gap 14 mmol/L (10-20); BUN (Urea Nitrogen) 18 mg/dL (9.8-20.1); Bilirubin, Total 0.2 mg/dL (0.2-1.2); Calc. Creatinine Clearance 0 mL/min (70-130); Calcium 9.2 mg/dL (7.8-10.44); Carbon Dioxide 21 mmol/L (23-31); Chloride 108 mmol/L (98-107); Globulin 3.5 g/dL (2.4-3.5); Glucose 125 mg/dL (80-115); Potassium 3.9 mmol/L (3.5-5.1); Protein, Total 7.2 g/dL (5.8-8.1); Sodium 139 mmol/L (136-145)
[2021-03-24 20:07] VITALS: BMI 40.3
[2021-03-24] MEDS: Morphine 4 MG/ML VIAL SLOW IVP PRN (20:27)
[2021-03-24] MEDS: Ibuprofen 800 MG TAB PO SCH (20:28)
[2021-03-24] MEDS: Benzonatate 100 MG CAP PO PRN (20:29)
[2021-03-24] MEDS: Famotidine 20 MG TAB PO SCH (20:29)
[2021-03-24] MEDS: Nicotine 14 MG PATCH TD SCH (20:31)
[2021-03-24] MEDS ORDERED: methylPREDNISolone Sod Succ/PF 125 MG/2 ML VIAL IVP SCH (20:45)
[2021-03-25] MEDS ORDERED: hydrALAZINE 20 MG/ML VIAL SLOW IVP PRN (01:44)
[2021-03-25] MEDS: Morphine 4 MG/ML VIAL SLOW IVP PRN ×5 (01:57→20:41)
[2021-03-25] MEDS: Labetalol HCl 100 MG/20 ML VIAL SLOW IVP PRN (02:11)
[2021-03-25 06:57] LABS: #Eosinphils 0.1 thou/uL (0.0-0.7); #Lymphocytes 1.3 thou/uL (1.20-3.40); #Monocytes 0.1 thou/uL (0.11-0.59); #Neutrophils 16.5 thou/uL (1.40-6.50); %Eosinophils 0.3 % (0.0-10.0); %Lymphocytes 7.3 % (21.0-51.0); %Monocytes 0.4 % (0.0-10.0); %Neutrophils 91.9 % (42.0-75.0); Hemoglobin 13.5 g/dL (12.0-16.0); Mean Corpuscular HGB CONC 32.9 g/dL (32.0-36.0); Mean Corpuscular Volume 91.1 fL (78.0-98.0); Mean Platelet Volume 6.6 fL (7.4-10.4); Platelet Count 449 thou/uL (130-400); RBC Distribution Width 12.2 % (11.5-14.5); Red Blood Cell (RBC) Count 4.51 mill/uL (4.20-5.40)
[2021-03-25 07:19] LABS: ALT (SGPT) 20 U/L (8-55); AST (SGOT) 15 U/L (5-34); Albumin 3.6 g/dL (3.4-4.8); Alkaline Phosphatase 118 U/L (40-110); Anion Gap 11 mmol/L (10-20); BUN (Urea Nitrogen) 17 mg/dL (9.8-20.1); Bilirubin, Total 0.2 mg/dL (0.2-1.2); Calc. Creatinine Clearance 124 mL/min (70-130); Calcium 9.4 mg/dL (7.8-10.44); Carbon Dioxide 24 mmol/L (23-31); Chloride 106 mmol/L (98-107); Globulin 3.6 g/dL (2.4-3.5); Glucose 144 mg/dL (80-115); Potassium 4.4 mmol/L (3.5-5.1); Protein, Total 7.2 g/dL (5.8-8.1); Sodium 137 mmol/L (136-145)
[2021-03-25] MEDS: Ibuprofen 800 MG TAB PO SCH ×3 (08:17→20:32)
[2021-03-25] MEDS: Minoxidil 10 MG TAB PO SCH (08:18)
[2021-03-25] MEDS: Benzonatate 100 MG CAP PO PRN ×2 (08:18→14:52)
[2021-03-25] MEDS: Famotidine 20 MG TAB PO SCH ×2 (08:19→20:32)
[2021-03-25] MEDS: Enoxaparin Sodium 40 MG/0.4 ML SYRINGE SC SCH (08:19)
[2021-03-25] MEDS: methylPREDNISolone Sod Succ 40 MG VIAL IVP SCH ×2 (08:19→20:34)
[2021-03-25] MEDS ORDERED: methylPREDNISolone Sod Succ/PF 125 MG/2 ML VIAL IVP SCH (09:00)
[2021-03-25] MEDS ORDERED: Dextromethorphan Polistirex 30 MG/5 ML (89 ML BOTTLE) PO PRN (13:18)
[2021-03-25] MEDS ORDERED: Ibuprofen 600 MG TAB PO PRN (14:07)
[2021-03-25] MEDS ORDERED: Azithromycin 1,000 MG in Sodium Chloride 0.9% 500 ML IVPB SCH (15:00)
[2021-03-25] MEDS ORDERED: Azithromycin 500 MG in Sodium Chloride 0.9% 250 ML 250 ML IVPB SCH (15:30)
[2021-03-25] MEDS: Nicotine 14 MG PATCH TD SCH (17:52)
[2021-03-25] MEDS: GUAIFENESIN SF SOLN 200 MG/10 ML UDCUP PO PRN (17:52)
[2021-03-25] MEDS: Mometasone 200 MCG/Formoterol 5 MCG 120 PUFF INHALER INH SCH (19:10)
[2021-03-25] MEDS: Baclofen 10 MG TAB PO SCH (20:32)
[2021-03-25] MEDS: Dextromethorphan Polistirex 30 MG/5 ML (89 ML BOTTLE) PO SCH (21:55)
[2021-03-26] MEDS: Morphine 4 MG/ML VIAL SLOW IVP PRN ×3 (02:10→21:44)
[2021-03-26 06:47] LABS: #Eosinphils 0.1 thou/uL (0.0-0.7); #Lymphocytes 1.3 thou/uL (1.20-3.40); #Monocytes 0.5 thou/uL (0.11-0.59); #Neutrophils 16.3 thou/uL (1.40-6.50); %Eosinophils 0.4 % (0.0-10.0); %Lymphocytes 7.1 % (21.0-51.0); %Monocytes 2.6 % (0.0-10.0); Hemoglobin 12.2 g/dL (12.0-16.0); Mean Corpuscular HGB CONC 32.5 g/dL (32.0-36.0); Mean Corpuscular Hemoglobin 29.7 pg (27.0-31.0); Mean Corpuscular Volume 91.4 fL (78.0-98.0); Mean Platelet Volume 6.4 fL (7.4-10.4); Platelet Count 455 thou/uL (130-400); RBC Distribution Width 12.4 % (11.5-14.5); Red Blood Cell (RBC) Count 4.12 mill/uL (4.20-5.40); White Blood Cell (WBC) Count 18.1 thou/uL (4.8-10.8)
[2021-03-26 07:14] LABS: Anion Gap 13 mmol/L (10-20); BUN (Urea Nitrogen) 45 mg/dL (9.8-20.1); Calc. Creatinine Clearance 66 mL/min (70-130); Calcium 9.3 mg/dL (7.8-10.44); Carbon Dioxide 25 mmol/L (23-31); Chloride 102 mmol/L (98-107); Glucose 163 mg/dL (80-115); Magnesium 2.1 mg/dL (1.6-2.6); Phosphorus 4.2 mg/dL (2.3-4.7); Potassium 4.2 mmol/L (3.5-5.1); Sodium 136 mmol/L (136-145)
[2021-03-26] MEDS: Mometasone 200 MCG/Formoterol 5 MCG 120 PUFF INHALER INH SCH ×2 (07:41→18:49)
[2021-03-26] MEDS: Baclofen 10 MG TAB PO SCH ×2 (08:07→21:39)
[2021-03-26] MEDS: Sodium Chloride 0.9% 1,000 ML IV SCH ×2 (08:07→18:01)
[2021-03-26] MEDS: Famotidine 20 MG TAB PO SCH ×2 (08:08→21:39)
[2021-03-26] MEDS: Minoxidil 10 MG TAB PO SCH (08:08)
[2021-03-26] MEDS: methylPREDNISolone Sod Succ 40 MG VIAL IVP SCH ×2 (08:10→21:39)
[2021-03-26] MEDS: Enoxaparin Sodium 40 MG/0.4 ML SYRINGE SC SCH (08:11)
[2021-03-26] MEDS: Lidocaine 5% Patch TD SCH (08:12)
[2021-03-26] MEDS: Dextromethorphan Polistirex 30 MG/5 ML (89 ML BOTTLE) PO SCH ×2 (08:12→21:39)
[2021-03-26] MEDS: Ondansetron PF 4 MG/2 ML Vial IVP PRN ×2 (08:53→15:08)
[2021-03-26] MEDS: GUAIFENESIN SF SOLN 200 MG/10 ML UDCUP PO PRN (12:14)
[2021-03-26] MEDS ORDERED: Metoclopramide HCl 10 MG/2 ML VIAL IVP PRN (13:20)
[2021-03-26] MEDS: Azithromycin 500 MG in Sodium Chloride 0.9% 250 ML 250 ML IVPB SCH (15:07)
[2021-03-26] MEDS: Nicotine 14 MG PATCH TD SCH (18:04)
[2021-03-26 18:21] LABS: ALT (SGPT) 16 U/L (8-55); AST (SGOT) 16 U/L (5-34); Albumin 3.6 g/dL (3.4-4.8); Alkaline Phosphatase 105 U/L (40-110); Bilirubin, Direct 0.1 mg/dL (0.1-0.3); Bilirubin, Total 0.2 mg/dL (0.2-1.2)
[2021-03-26] MEDS: Transdermal Patch Removal TOP SCH (21:40)
[2021-03-27] MEDS ORDERED: HYDROcodone/Acetaminophen 7.5/325 mg Tablet PO PRN (01:20)
[2021-03-27] MEDS ORDERED: HYDROcodone/Acetaminophen 5/325 mg Tablet PO PRN (01:20)
[2021-03-27] MEDS: Sodium Chloride 0.9% 1,000 ML IV SCH ×4 (03:30→18:45)
[2021-03-27] MEDS: Ondansetron PF 4 MG/2 ML Vial IVP PRN ×2 (06:49→18:27)
[2021-03-27] MEDS: Mometasone 200 MCG/Formoterol 5 MCG 120 PUFF INHALER INH SCH ×2 (08:12→22:24)
[2021-03-27] MEDS: Baclofen 10 MG TAB PO SCH (08:24)
[2021-03-27] MEDS: GUAIFENESIN SF SOLN 200 MG/10 ML UDCUP PO PRN (08:24)
[2021-03-27] MEDS: Minoxidil 10 MG TAB PO SCH (08:24)
[2021-03-27] MEDS: Famotidine 20 MG TAB PO SCH (08:24)
[2021-03-27] MEDS: methylPREDNISolone Sod Succ 40 MG VIAL IVP SCH (08:24)
[2021-03-27] MEDS: Lidocaine 5% Patch TD SCH (08:25)
[2021-03-27] MEDS: Enoxaparin Sodium 40 MG/0.4 ML SYRINGE SC SCH (08:25)
[2021-03-27] MEDS: Acetaminophen 325 MG TAB PO PRN (08:26)
[2021-03-27 08:48] LABS: #Eosinphils 0.1 thou/uL (0.0-0.7); #Lymphocytes 1.5 thou/uL (1.20-3.40); #Monocytes 0.7 thou/uL (0.11-0.59); #Neutrophils 16.8 thou/uL (1.40-6.50); %Basophils 0.1 % (0.0-1.0); %Eosinophils 0.4 % (0.0-10.0); %Lymphocytes 7.8 % (21.0-51.0); %Monocytes 3.4 % (0.0-10.0); %Neutrophils 88.3 % (42.0-75.0); Hemoglobin 13.3 g/dL (12.0-16.0); Mean Corpuscular Volume 90.8 fL (78.0-98.0); Mean Platelet Volume 6.7 fL (7.4-10.4); Platelet Count 534 thou/uL (130-400); RBC Distribution Width 12.5 % (11.5-14.5); Red Blood Cell (RBC) Count 4.44 mill/uL (4.20-5.40); White Blood Cell (WBC) Count 19.1 thou/uL (4.8-10.8)
[2021-03-27] MEDS ORDERED: Acetaminophen W/ Codeine 5 ML UDCUP PO PRN (08:52)
[2021-03-27] MEDS ORDERED: guaiFENesin/Codeine 200 mg/20 mg 10 ml Cup PO PRN (08:53)
[2021-03-27 08:59] LABS: ALT (SGPT) 16 U/L (8-55); AST (SGOT) 11 U/L (5-34); Alkaline Phosphatase 107 U/L (40-110); Anion Gap 14 mmol/L (10-20); BUN (Urea Nitrogen) 65 mg/dL (9.8-20.1); Bilirubin, Total 0.2 mg/dL (0.2-1.2); Calc. Creatinine Clearance 62 mL/min (70-130); Calcium 9.3 mg/dL (7.8-10.44); Carbon Dioxide 23 mmol/L (23-31); Chloride 106 mmol/L (98-107); Globulin 3.8 g/dL (2.4-3.5); Glucose 137 mg/dL (80-115); Magnesium 2.4 mg/dL (1.6-2.6); Phosphorus 4.7 mg/dL (2.3-4.7); Potassium 4.4 mmol/L (3.5-5.1); Protein, Total 7.8 g/dL (5.8-8.1); Sodium 139 mmol/L (136-145)
[2021-03-27] MEDS ORDERED: Metoclopramide HCl 10 MG/2 ML VIAL IVP SCH (09:00)
[2021-03-27] MEDS: Metoclopramide HCl 10 MG/2 ML VIAL IVP SCH ×3 (10:13→22:27)
[2021-03-27] MEDS: Dextromethorphan Polistirex 30 MG/5 ML (89 ML BOTTLE) PO SCH ×2 (10:13→22:37)
[2021-03-27] MEDS: Pantoprazole 40 MG VIAL IVP SCH ×2 (10:14→22:28)
[2021-03-27] MEDS: Azithromycin 500 MG in Sodium Chloride 0.9% 250 ML 250 ML IVPB SCH (14:22)
[2021-03-27 16:28] LABS: Prothrombin Time 13.2 sec (12.0-14.7)
[2021-03-27 16:28] LABS: ALT (SGPT) 19 U/L (8-55); AST (SGOT) 14 U/L (5-34); Albumin 3.8 g/dL (3.4-4.8); Alkaline Phosphatase 102 U/L (40-110); Anion Gap 13 mmol/L (10-20); BUN (Urea Nitrogen) 70 mg/dL (9.8-20.1); Bilirubin, Total 0.2 mg/dL (0.2-1.2); Calc. Creatinine Clearance 63 mL/min (70-130); Carbon Dioxide 20 mmol/L (23-31); Chloride 107 mmol/L (98-107); Globulin 3.5 g/dL (2.4-3.5); Glucose 169 mg/dL (80-115); Potassium 4.2 mmol/L (3.5-5.1); Protein, Total 7.3 g/dL (5.8-8.1); Sodium 136 mmol/L (136-145)
[2021-03-27 16:29] LABS: PTT 33.8 sec (22.9-36.1)
[2021-03-27 16:38] LABS: Hemoglobin 12.8 g/dL (12.0-16.0); Mean Corpuscular HGB CONC 32.9 g/dL (32.0-36.0); Mean Corpuscular Hemoglobin 30.2 pg (27.0-31.0); Mean Corpuscular Volume 91.6 fL (78.0-98.0); Mean Platelet Volume 6.4 fL (7.4-10.4); Platelet Count 484 thou/uL (130-400); RBC Distribution Width 12.4 % (11.5-14.5); Red Blood Cell (RBC) Count 4.24 mill/uL (4.20-5.40); White Blood Cell (WBC) Count 20.3 thou/uL (4.8-10.8)
[2021-03-27 16:39] LABS: Band 6 % (5-11); Lymphocytes 9 % (21-51); MDiff Complete? YES; Monocytes 1 % (0-10); Neutrophil 84 % (42-75); Platelet Morphology Comment Appears Increased; Polychromasia SLIGHT = 2-3 cells (100X) (0-2/hpf)
[2021-03-27 17:53] LABS: SARS-CoV-2 NAA Rapid Test Not Detected (NotDetected)
[2021-03-27] MEDS ORDERED: methylPREDNISolone Sod Succ 40 MG VIAL IVP SCH (18:00)
[2021-03-27] MEDS: cefTRIAXone\\ROCEPHIN 2 GM in Sodium Chloride 0.9% 100 ML IVPB SCH (18:21)
[2021-03-27] MEDS: Nicotine 14 MG PATCH TD SCH (18:22)
[2021-03-27] MEDS ORDERED: Lorazepam 2 MG/ML VIAL SLOW IVP SCH (19:46)
[2021-03-27] MEDS ORDERED: Sodium Chloride 0.9% 1,000 ML IV SCH (20:15)
[2021-03-27 20:16] LABS: Actual Bicarbonate (HCO3a) 19.4 mEq/L (22-28); Base Excess (BEa) -9.2 mEq/L (-2.0 to +3.0); CO2 Tension 53.7 mmHg (35.0-45.0); Calcium, Ionized (arterial) 1.19 mmol/L (1.12-1.30); Carboxyhemoglobin (COHb) 0.2 gm% (0.0-3.0); Hemoglobin (Hb) 12.6 g/dL (12.0-16.0); O2 Tension (PaO2), arterial 83.5 mmHg (> 80.0); Potassium - ABG Lab 3.88 mmol/L (3.70-5.30)
[2021-03-27 20:26] LABS: Puncture Site RRA; pH, Arterial 7.18 (7.35-7.45)
[2021-03-27 20:27] LABS: ALV-art Gradient 106.055 mmHg (0-20)
[2021-03-27 21:08] LABS: Bacteria/HPF None Seen HPF (None Seen); Bilirubin Negative (Negative); Blood, Urine Negative (Negative); Clarity Clear (Clear); Glucose, Urine (Dipstick) Normal (Negative); Ketone, Urine Negative (Negative); Leukocyte Negative Leu/uL (Negative); Nitrite Negative (Negative); Protein, Urine (Dipstick) 20 mg/dL (Neg-Trace); RBC/HPF 0-3 HPF (0-3); Specific Gravity, Urine 1.017 (1.002-1.036); Squamous Epithelial 0-3 HPF (0-3); Urobilinogen Normal mg/dL (Less than 2); WBC/HPF 0-3 HPF (0-3); pH, Urine 5.5 (5.0-9.0)
[2021-03-27 21:12] LABS: Urine Culture Reflex No No
[2021-03-27 21:15] LABS: Creatinine, Urine 114.11 mg/dL (47-110); Protein, Urine Random Quant 23 mg/dL (1-14); Sodium, Urine Less than 20 mmol/L (Not Available); Urea Nitrogen, Random Urine 505 mg/dl
[2021-03-27] MEDS ORDERED: Sodium Bicarb 50 MEQ/50 ML Abboject 8.4% SYRINGE IVP SCH ×2 (22:00)
[2021-03-27] MEDS ORDERED: Sodium Bicarb 50 MEQ/50 ML Abboject 8.4% SYRINGE ONE (22:18)
[2021-03-27] MEDS: Transdermal Patch Removal TOP SCH (22:38)
[2021-03-27 22:45] LABS: Anion Gap 13 mmol/L (10-20); BUN (Urea Nitrogen) 70 mg/dL (9.8-20.1); Calc. Creatinine Clearance 69 mL/min (70-130); Calcium 8.4 mg/dL (7.8-10.44); Carbon Dioxide 18 mmol/L (23-31); Chloride 110 mmol/L (98-107); Glucose 131 mg/dL (80-115); Potassium 3.9 mmol/L (3.5-5.1); Sodium 137 mmol/L (136-145)
[2021-03-28] MEDS: Metoclopramide HCl 10 MG/2 ML VIAL IVP SCH (03:17)
[2021-03-28 04:47] LABS: #Eosinphils 0.1 thou/uL (0.0-0.7); #Monocytes 0.4 thou/uL (0.11-0.59); #Neutrophils 12.8 thou/uL (1.40-6.50); %Basophils 0.1 % (0.0-1.0); %Eosinophils 0.7 % (0.0-10.0); %Lymphocytes 6.9 % (21.0-51.0); %Monocytes 2.6 % (0.0-10.0); %Neutrophils 89.8 % (42.0-75.0); Hemoglobin 11.3 g/dL (12.0-16.0); Mean Corpuscular HGB CONC 33.3 g/dL (32.0-36.0); Mean Corpuscular Hemoglobin 30.1 pg (27.0-31.0); Mean Corpuscular Volume 90.5 fL (78.0-98.0); Mean Platelet Volume 6.4 fL (7.4-10.4); Platelet Count 420 thou/uL (130-400); RBC Distribution Width 12.2 % (11.5-14.5); Red Blood Cell (RBC) Count 3.75 mill/uL (4.20-5.40); White Blood Cell (WBC) Count 14.3 thou/uL (4.8-10.8)
[2021-03-28] MEDS: Sodium Chloride 0.9% 1,000 ML IV SCH (05:06)
[2021-03-28 05:20] LABS: ALT (SGPT) 19 U/L (8-55); AST (SGOT) 13 U/L (5-34); Albumin 3.3 g/dL (3.4-4.8); Alkaline Phosphatase 84 U/L (40-110); Anion Gap 15 mmol/L (10-20); BUN (Urea Nitrogen) 67 mg/dL (9.8-20.1); Bilirubin, Total 0.2 mg/dL (0.2-1.2); Calc. Creatinine Clearance 80 mL/min (70-130); Calcium 8.2 mg/dL (7.8-10.44); Carbon Dioxide 21 mmol/L (23-31); Chloride 109 mmol/L (98-107); Globulin 2.9 g/dL (2.4-3.5); Glucose 146 mg/dL (80-115); Magnesium 2.4 mg/dL (1.6-2.6); Phosphorus 3.6 mg/dL (2.3-4.7); Potassium 3.7 mmol/L (3.5-5.1); Protein, Total 6.2 g/dL (5.8-8.1); Sodium 141 mmol/L (136-145)
[2021-03-28] MEDS: Lactated Ringer's 1,000 ML IV SCH ×3 (07:05→20:11)
[2021-03-28] MEDS: Mometasone 200 MCG/Formoterol 5 MCG 120 PUFF INHALER INH SCH ×2 (07:10→18:19)
[2021-03-28 07:46] LABS: Actual Bicarbonate (HCO3a) 23.3 mEq/L (22-28); Base Excess (BEa) -3.9 mEq/L (-2.0 to +3.0); CO2 Tension 52.1 mmHg (35.0-45.0); Calcium, Ionized (arterial) 1.19 mmol/L (1.12-1.30); Carboxyhemoglobin (COHb) 0.3 gm% (0.0-3.0); Hemoglobin (Hb) 11.9 g/dL (12.0-16.0); O2 Tension (PaO2), arterial 89.3 mmHg (> 80.0); Potassium - ABG Lab 3.71 mmol/L (3.70-5.30); pH, Arterial 7.27 (7.35-7.45)
[2021-03-28 07:51] LABS: ALV-art Gradient 95.125 mmHg (0-20); Puncture Site RRA
[2021-03-28] MEDS: Enoxaparin Sodium 40 MG/0.4 ML SYRINGE SC SCH (09:04)
[2021-03-28] MEDS: Lidocaine 5% Patch TD SCH (09:04)
[2021-03-28] MEDS ORDERED: methylPREDNISolone Sod Succ 40 MG VIAL ONE (09:06)
[2021-03-28] MEDS: methylPREDNISolone Sod Succ 40 MG VIAL IVP SCH ×2 (09:07→20:07)
[2021-03-28] MEDS: Pantoprazole 40 MG VIAL IVP SCH ×2 (09:08→20:08)
[2021-03-28] MEDS: Minoxidil 10 MG TAB PO SCH (09:08)
[2021-03-28] MEDS: Dextromethorphan Polistirex 30 MG/5 ML (89 ML BOTTLE) PO SCH ×2 (10:29→20:09)
[2021-03-28 12:40] LABS: Actual Bicarbonate (HCO3v) 22 mEq/L (22-28); Base Excess -4.6 mEq/L (-2.0 to +3.0); Calcium, Ionized (venous) 1.14 mmol/L (1.16-1.32); Chloride (VBG) 107 mmol/L (98-106); Hemoglobin (Hb) 12.6 g/dL (11.7-16.0); Potassium (VBG) 3.55 mmol/L (3.70-5.30); pH (venous) 7.27 (7.32-7.43)
[2021-03-28] MEDS: Azithromycin 500 MG in Sodium Chloride 0.9% 250 ML 250 ML IVPB SCH (15:17)
[2021-03-28 17:19] LABS: Anion Gap 16 mmol/L (10-20); BUN (Urea Nitrogen) 68 mg/dL (9.8-20.1); Calc. Creatinine Clearance 85 mL/min (70-130); Calcium 8.5 mg/dL (7.8-10.44); Carbon Dioxide 20 mmol/L (23-31); Chloride 108 mmol/L (98-107); Glucose 137 mg/dL (80-115); Potassium 3.6 mmol/L (3.5-5.1); Sodium 140 mmol/L (136-145)
[2021-03-28] MEDS: Benzonatate 100 MG CAP PO PRN (17:57)
[2021-03-28] MEDS: cefTRIAXone\\ROCEPHIN 2 GM in Sodium Chloride 0.9% 100 ML IVPB SCH (17:57)
[2021-03-28] MEDS: Nicotine 14 MG PATCH TD SCH (17:57)
[2021-03-28] MEDS: Acetaminophen 325 MG TAB PO PRN ×2 (18:02→21:30)
[2021-03-28] MEDS: Transdermal Patch Removal TOP SCH (20:09)
[2021-03-29 04:39] LABS: #Lymphocytes 0.8 thou/uL (1.20-3.40); #Monocytes 0.2 thou/uL (0.11-0.59); #Neutrophils 7.6 thou/uL (1.40-6.50); %Basophils 0.3 % (0.0-1.0); %Eosinophils 0.3 % (0.0-10.0); %Lymphocytes 9.3 % (21.0-51.0); %Monocytes 2.5 % (0.0-10.0); %Neutrophils 87.6 % (42.0-75.0); Mean Corpuscular HGB CONC 32.1 g/dL (32.0-36.0); Mean Corpuscular Hemoglobin 28.8 pg (27.0-31.0); Mean Corpuscular Volume 89.8 fL (78.0-98.0); Mean Platelet Volume 6.4 fL (7.4-10.4); Platelet Count 345 thou/uL (130-400); RBC Distribution Width 12.1 % (11.5-14.5); Red Blood Cell (RBC) Count 3.47 mill/uL (4.20-5.40); White Blood Cell (WBC) Count 8.6 thou/uL (4.8-10.8)
[2021-03-29 04:58] LABS: ALT (SGPT) 14 U/L (8-55); AST (SGOT) 11 U/L (5-34); Alkaline Phosphatase 69 U/L (40-110); Anion Gap 10 mmol/L (10-20); BUN (Urea Nitrogen) 67 mg/dL (9.8-20.1); Bilirubin, Total 0.2 mg/dL (0.2-1.2); Calc. Creatinine Clearance 81 mL/min (70-130); Calcium 8.2 mg/dL (7.8-10.44); Carbon Dioxide 24 mmol/L (23-31); Chloride 108 mmol/L (98-107); Globulin 2.6 g/dL (2.4-3.5); Glucose 178 mg/dL (80-115); Magnesium 2.1 mg/dL (1.6-2.6); Potassium 3.7 mmol/L (3.5-5.1); Protein, Total 5.6 g/dL (5.8-8.1); Sodium 138 mmol/L (136-145)
[2021-03-29] MEDS: Lactated Ringer's 1,000 ML IV SCH ×3 (05:38→15:14)
[2021-03-29] MEDS: Mometasone 200 MCG/Formoterol 5 MCG 120 PUFF INHALER INH SCH ×2 (07:21→18:28)
[2021-03-29] MEDS: Minoxidil 10 MG TAB PO SCH (08:35)
[2021-03-29] MEDS: Lidocaine 5% Patch TD SCH (08:35)
[2021-03-29] MEDS: Pantoprazole 40 MG VIAL IVP SCH ×2 (08:36→20:09)
[2021-03-29] MEDS: Enoxaparin Sodium 40 MG/0.4 ML SYRINGE SC SCH (08:36)
[2021-03-29] MEDS: Dextromethorphan Polistirex 30 MG/5 ML (89 ML BOTTLE) PO SCH ×2 (08:36→20:24)
[2021-03-29] MEDS: methylPREDNISolone Sod Succ 40 MG VIAL IVP SCH ×2 (08:36→20:09)
[2021-03-29] MEDS: Labetalol HCl 100 MG/20 ML VIAL SLOW IVP PRN (12:52)
[2021-03-29] MEDS: Azithromycin 500 MG in Sodium Chloride 0.9% 250 ML 250 ML IVPB SCH (15:22)
[2021-03-29] MEDS: Benzonatate 100 MG CAP PO SCH ×2 (15:22→20:11)
[2021-03-29] MEDS ORDERED: Lactated Ringer's 1,000 ML IV SCH (16:34)
[2021-03-29] MEDS: cefTRIAXone\\ROCEPHIN 2 GM in Sodium Chloride 0.9% 100 ML IVPB SCH (18:13)
[2021-03-29] MEDS: Nicotine 14 MG PATCH TD SCH (18:14)
[2021-03-29 18:32] LABS: Hemoglobin 11.4 g/dL (12.0-16.0)
[2021-03-29] MEDS: Acetaminophen 325 MG TAB PO PRN (20:07)
[2021-03-29] MEDS: Transdermal Patch Removal TOP SCH (20:10)
[2021-03-30] MEDS: Acetaminophen 325 MG TAB PO PRN (06:11)
[2021-03-30] MEDS: Mometasone 200 MCG/Formoterol 5 MCG 120 PUFF INHALER INH SCH ×2 (06:30→18:49)
[2021-03-30 07:17] LABS: #Eosinphils 0.1 thou/uL (0.0-0.7); #Lymphocytes 1.4 thou/uL (1.20-3.40); #Monocytes 0.4 thou/uL (0.11-0.59); #Neutrophils 8.6 thou/uL (1.40-6.50); %Eosinophils 0.8 % (0.0-10.0); %Lymphocytes 13.3 % (21.0-51.0); %Monocytes 3.8 % (0.0-10.0); %Neutrophils 82.1 % (42.0-75.0); Hemoglobin 11.3 g/dL (12.0-16.0); Mean Corpuscular HGB CONC 32.9 g/dL (32.0-36.0); Mean Corpuscular Hemoglobin 29.4 pg (27.0-31.0); Mean Corpuscular Volume 89.6 fL (78.0-98.0); Mean Platelet Volume 6.9 fL (7.4-10.4); Platelet Count 428 thou/uL (130-400); RBC Distribution Width 12.2 % (11.5-14.5); Red Blood Cell (RBC) Count 3.84 mill/uL (4.20-5.40); White Blood Cell (WBC) Count 10.4 thou/uL (4.8-10.8)
[2021-03-30] MEDS: methylPREDNISolone Sod Succ 40 MG VIAL IVP SCH ×2 (08:26→20:46)
[2021-03-30] MEDS: Pantoprazole 40 MG VIAL IVP SCH ×2 (08:26→20:45)
[2021-03-30] MEDS: Benzonatate 100 MG CAP PO SCH ×3 (08:32→20:43)
[2021-03-30] MEDS ORDERED: Acetaminophen 325 MG TAB PO PRN (09:56)
[2021-03-30] MEDS ORDERED: HYDROcodone/Acetaminophen 5/325 mg Tablet PO PRN (09:56)
[2021-03-30 10:25] LABS: ALT (SGPT) 17 U/L (8-55); AST (SGOT) 18 U/L (5-34); Albumin 3.3 g/dL (3.4-4.8); Alkaline Phosphatase 76 U/L (40-110); Anion Gap 16 mmol/L (10-20); BUN (Urea Nitrogen) 41 mg/dL (9.8-20.1); Bilirubin, Total 0.2 mg/dL (0.2-1.2); Calc. Creatinine Clearance 114 mL/min (70-130); Calcium 8.7 mg/dL (7.8-10.44); Carbon Dioxide 21 mmol/L (23-31); Chloride 108 mmol/L (98-107); Globulin 2.8 g/dL (2.4-3.5); Glucose 162 mg/dL (80-115); Magnesium 2.2 mg/dL (1.6-2.6); Potassium 3.9 mmol/L (3.5-5.1); Protein, Total 6.1 g/dL (5.8-8.1); Sodium 141 mmol/L (136-145)
[2021-03-30] MEDS: Acetaminophen/Codeine 30-300mg Tablet PO PRN ×2 (10:25→19:58)
[2021-03-30] MEDS: Minoxidil 10 MG TAB PO SCH (10:52)
[2021-03-30] MEDS: Lidocaine 5% Patch TD SCH (10:53)
[2021-03-30] MEDS: HYDROcodone/Acetaminophen 5/325 mg Tablet PO PRN ×2 (15:28→20:43)
[2021-03-30] MEDS: Dextromethorphan Polistirex 30 MG/5 ML (89 ML BOTTLE) PO SCH ×2 (15:30→23:37)
[2021-03-30] MEDS ORDERED: Potassium Phosphate 15 MMOL in Sodium Chloride 0.9% 100 ML IVPB SCH (17:00)
[2021-03-30] MEDS ORDERED: Electrolyte Replacement Protocol 1 EACH FS SCH (17:00)
[2021-03-30] MEDS: Azithromycin 500 MG in Sodium Chloride 0.9% 250 ML 250 ML IVPB SCH (17:59)
[2021-03-30] MEDS: cefTRIAXone\\ROCEPHIN 2 GM in Sodium Chloride 0.9% 100 ML IVPB SCH (19:28)
[2021-03-30] MEDS: Nicotine 14 MG PATCH TD SCH (20:45)
[2021-03-30] MEDS: Transdermal Patch Removal TOP SCH (22:42)
[2021-03-31] MEDS: HYDROcodone/Acetaminophen 5/325 mg Tablet PO PRN ×5 (04:11→23:52)
[2021-03-31] MEDS: Mometasone 200 MCG/Formoterol 5 MCG 120 PUFF INHALER INH SCH ×2 (07:09→20:48)
[2021-03-31 07:26] LABS: #Lymphocytes 2.1 thou/uL (1.20-3.40); #Monocytes 0.6 thou/uL (0.11-0.59); %Basophils 0.1 % (0.0-1.0); %Eosinophils 0.4 % (0.0-10.0); %Lymphocytes 17.6 % (21.0-51.0); %Monocytes 5.4 % (0.0-10.0); %Neutrophils 76.6 % (42.0-75.0); Hemoglobin 11.8 g/dL (12.0-16.0); Mean Corpuscular HGB CONC 32.5 g/dL (32.0-36.0); Mean Corpuscular Hemoglobin 28.9 pg (27.0-31.0); Mean Corpuscular Volume 88.9 fL (78.0-98.0); Platelet Count 395 thou/uL (130-400); RBC Distribution Width 12.4 % (11.5-14.5); Red Blood Cell (RBC) Count 4.08 mill/uL (4.20-5.40); White Blood Cell (WBC) Count 11.7 thou/uL (4.8-10.8)
[2021-03-31 07:51] LABS: ALT (SGPT) 22 U/L (8-55); AST (SGOT) 19 U/L (5-34); Albumin 3.2 g/dL (3.4-4.8); Alkaline Phosphatase 71 U/L (40-110); Anion Gap 10 mmol/L (10-20); BUN (Urea Nitrogen) 27 mg/dL (9.8-20.1); Bilirubin, Total 0.3 mg/dL (0.2-1.2); Calc. Creatinine Clearance 118 mL/min (70-130); Calcium 8.6 mg/dL (7.8-10.44); Carbon Dioxide 28 mmol/L (23-31); Chloride 107 mmol/L (98-107); Globulin 2.9 g/dL (2.4-3.5); Glucose 126 mg/dL (80-115); Magnesium 2.2 mg/dL (1.6-2.6); Phosphorus 2.6 mg/dL (2.3-4.7); Potassium 3.8 mmol/L (3.5-5.1); Protein, Total 6.1 g/dL (5.8-8.1); Sodium 141 mmol/L (136-145)
[2021-03-31] MEDS: Pantoprazole 40 MG VIAL IVP SCH ×2 (08:58→21:40)
[2021-03-31] MEDS: methylPREDNISolone Sod Succ 40 MG VIAL IVP SCH (08:59)
[2021-03-31] MEDS: Dextromethorphan Polistirex 30 MG/5 ML (89 ML BOTTLE) PO SCH ×2 (08:59→21:56)
[2021-03-31] MEDS: Benzonatate 100 MG CAP PO SCH ×3 (09:00→21:39)
[2021-03-31] MEDS: Minoxidil 10 MG TAB PO SCH (09:00)
[2021-03-31] MEDS: Lidocaine 5% Patch TD SCH (11:23)
[2021-03-31] MEDS: Nicotine 14 MG PATCH TD SCH (18:39)
[2021-03-31] MEDS: Transdermal Patch Removal TOP SCH (21:41)
[2021-04-01 06:29] LABS: #Eosinphils 0.1 thou/uL (0.0-0.7); #Lymphocytes 5.4 thou/uL (1.20-3.40); #Neutrophils 7.6 thou/uL (1.40-6.50); %Basophils 0.2 % (0.0-1.0); %Neutrophils 53.9 % (42.0-75.0); Hemoglobin 11.9 g/dL (12.0-16.0); Mean Corpuscular HGB CONC 32.5 g/dL (32.0-36.0); Mean Corpuscular Hemoglobin 29.4 pg (27.0-31.0); Mean Corpuscular Volume 90.5 fL (78.0-98.0); Mean Platelet Volume 6.6 fL (7.4-10.4); Platelet Count 411 thou/uL (130-400); RBC Distribution Width 12.6 % (11.5-14.5); Red Blood Cell (RBC) Count 4.04 mill/uL (4.20-5.40); White Blood Cell (WBC) Count 14.1 thou/uL (4.8-10.8)
[2021-04-01 06:54] LABS: ALT (SGPT) 29 U/L (8-55); AST (SGOT) 20 U/L (5-34); Albumin 3.3 g/dL (3.4-4.8); Alkaline Phosphatase 70 U/L (40-110); Anion Gap 13 mmol/L (10-20); BUN (Urea Nitrogen) 21 mg/dL (9.8-20.1); Bilirubin, Total 0.3 mg/dL (0.2-1.2); Calc. Creatinine Clearance 132 mL/min (70-130); Calcium 8.4 mg/dL (7.8-10.44); Carbon Dioxide 24 mmol/L (23-31); Chloride 108 mmol/L (98-107); Globulin 2.8 g/dL (2.4-3.5); Glucose 100 mg/dL (80-115); Magnesium 2.2 mg/dL (1.6-2.6); Phosphorus 2.9 mg/dL (2.3-4.7); Potassium 3.6 mmol/L (3.5-5.1); Protein, Total 6.1 g/dL (5.8-8.1); Sodium 141 mmol/L (136-145)
[2021-04-01] MEDS: predniSONE 20 MG TAB PO SCH (08:55)
[2021-04-01] MEDS: Minoxidil 10 MG TAB PO SCH (08:56)
[2021-04-01] MEDS: Benzonatate 100 MG CAP PO SCH ×3 (08:56→21:38)
[2021-04-01] MEDS: Pantoprazole 40 MG VIAL IVP SCH ×2 (08:56→21:38)
[2021-04-01] MEDS: HYDROcodone/Acetaminophen 5/325 mg Tablet PO PRN ×4 (08:59→21:46)
[2021-04-01] MEDS: Lidocaine 5% Patch TD SCH (09:03)
[2021-04-01] MEDS: Dextromethorphan Polistirex 30 MG/5 ML (89 ML BOTTLE) PO SCH ×2 (11:00→22:17)
[2021-04-01] MEDS: Mometasone 200 MCG/Formoterol 5 MCG 120 PUFF INHALER INH SCH ×2 (12:49→18:31)
[2021-04-01] MEDS: Nicotine 14 MG PATCH TD SCH (17:30)
[2021-04-01] MEDS: Transdermal Patch Removal TOP SCH (21:39)
[2021-04-02] MEDS: HYDROcodone/Acetaminophen 5/325 mg Tablet PO PRN ×5 (02:05→20:48)
[2021-04-02 06:59] LABS: ALT (SGPT) 30 U/L (8-55); AST (SGOT) 19 U/L (5-34); Albumin 3.3 g/dL (3.4-4.8); Alkaline Phosphatase 65 U/L (40-110); Anion Gap 11 mmol/L (10-20); BUN (Urea Nitrogen) 20 mg/dL (9.8-20.1); Bilirubin, Total 0.3 mg/dL (0.2-1.2); Calc. Creatinine Clearance 113 mL/min (70-130); Calcium 8.3 mg/dL (7.8-10.44); Carbon Dioxide 29 mmol/L (23-31); Chloride 105 mmol/L (98-107); Globulin 2.4 g/dL (2.4-3.5); Glucose 117 mg/dL (80-115); Potassium 3.7 mmol/L (3.5-5.1); Protein, Total 5.7 g/dL (5.8-8.1); Sodium 141 mmol/L (136-145)
[2021-04-02] MEDS: Mometasone 200 MCG/Formoterol 5 MCG 120 PUFF INHALER INH SCH ×2 (07:00→19:01)
[2021-04-02] MEDS: Minoxidil 10 MG TAB PO SCH (08:56)
[2021-04-02] MEDS: Benzonatate 100 MG CAP PO SCH ×3 (08:56→20:48)
[2021-04-02] MEDS: Pantoprazole 40 MG VIAL IVP SCH ×2 (08:57→20:48)
[2021-04-02] MEDS: predniSONE 20 MG TAB PO SCH (08:57)
[2021-04-02] MEDS: Lidocaine 5% Patch TD SCH (08:57)
[2021-04-02] MEDS: Dextromethorphan Polistirex 30 MG/5 ML (89 ML BOTTLE) PO SCH ×2 (08:57→23:28)
[2021-04-02] MEDS: Nicotine 14 MG PATCH TD SCH (18:12)
[2021-04-02] MEDS: Transdermal Patch Removal TOP SCH (20:50)
[2021-04-03] MEDS: HYDROcodone/Acetaminophen 5/325 mg Tablet PO PRN ×2 (03:35→09:34)
[2021-04-03 08:08] VITALS: BP 142/68; TEMP 97.6
[2021-04-03] MEDS: Lidocaine 5% Patch TD SCH (08:08)
[2021-04-03] MEDS: Dextromethorphan Polistirex 30 MG/5 ML (89 ML BOTTLE) PO SCH (08:08)
[2021-04-03] MEDS: Benzonatate 100 MG CAP PO SCH (08:08)
[2021-04-03] MEDS: Minoxidil 10 MG TAB PO SCH (08:08)
[2021-04-03] MEDS: predniSONE 20 MG TAB PO SCH (08:08)
[2021-04-03] MEDS: Pantoprazole 40 MG VIAL IVP SCH (08:09)
[2021-04-03 10:15] LABS: SARS-CoV-2 PCR by NAA Not Detected (NotDetected)
[2021-04-03] MEDS: Mometasone 200 MCG/Formoterol 5 MCG 120 PUFF INHALER INH SCH (10:34)
== END 2021-04-03 12:49 | disposition home health service (06) | DRG 871 ==
LOC: ERS 13:59 → T4-B 17:26 → CCU 03-27 21:28 → SJJU 03-30 00:57
PROVIDERS: ADMIT Internal Medicine; ATTEND Family Medicine
PROC: 5A09557 Assistance with Respiratory Ventilation, Greater than 96 Consecutive Hours, Continuous Positive Airway Pressure (ICD-10-PCS; principal; 2021-03-27)
DX: A41.9 Sepsis, unspecified organism (principal); J18.9 Pneumonia, unspecified organism; J96.01 Acute respiratory failure with hypoxia; J96.02 Acute respiratory failure with hypercapnia; G92.8 Other toxic encephalopathy; J44.1 Chronic obstructive pulmonary disease with (acute) exacerbation; J44.0 Chronic obstructive pulmonary disease with (acute) lower respiratory infection; N17.9 Acute kidney failure, unspecified; J45.901 Unspecified asthma with (acute) exacerbation; E87.2 Acidosis; Z68.41 Body mass index [BMI] 40.0-44.9, adult; Z20.822 Contact with and (suspected) exposure to COVID-19; I10 Essential (primary) hypertension; M48.00 Spinal stenosis, site unspecified; F17.210 Nicotine dependence, cigarettes, uncomplicated; F32.A Depression, unspecified; E66.01 Morbid (severe) obesity due to excess calories; E86.0 Dehydration; D64.9 Anemia, unspecified; Z96.643 Presence of artificial hip joint, bilateral; Z88.0 Allergy status to penicillin; Z88.2 Allergy status to sulfonamides; Z79.899 Other long term (current) drug therapy; Z90.710 Acquired absence of both cervix and uterus; Z90.49 Acquired absence of other specified parts of digestive tract; Z90.09 Acquired absence of other part of head and neck
CPT/HCPCS: 0240U; 36415; 36600; 71045; 71275; 76770; 80048; 80053; 80076; 81001; 82140; 82274; 82550; 82570; 82805; 83605; 83690; 83735; 83880; 84100; 84145; 84156; 84300; 84484; 84540; 85025; 85610; 85730; 86140; 86850; 86900; 86901; 87040; 93005; 93306; 94640; 94660; 94664; 94760; 96374; 96375; C9113; J0456; J0696; J1650; J1885; J2060; J2270; J2405; J2765; J2920; J2930; J3490; J7050; J7120; J7512; J7620; U0002; U0003; U0005